=== PATIENT | male | born 1995 | race Caucasian/White ===

== ENCOUNTER 2021-12-29 15:57 | Emergency (ER) | payer OTHER, SELFPAY ==
--- NOTE | ~2021-12-29 | CT_ITS ---
EXAMINATION: CT brain wo con DATE: 12/29/2021 17:02 INDICATION: Fall with head injury TECHNIQUE: Computed tomography (CT) of the head was performed without intravenous contrast. Sagittal and coronal reconstructions were performed. The mA was adjusted according to patient size. Iterative reconstruction technique was employed. The dose-length product was 605.33 mGy-cm. COMPARISON: None FINDINGS: No fracture. No acute intracranial hemorrhage, acute infarction or abnormal extra axial fluid collect ion. Ventricles are normal and symmetric. No mass/mass effect. The orbits, paranasal sinuses and mast oid air cells are normal. IMPRESSION: 1. Normal head CT. No fracture or acute intracranial process. Reviewed, dictated and finalized at location [facility]
[2021-12-29 15:59] VITALS: BP 155/74; PULSE 60; RESP 18; TEMP 36.8; O2SAT 99
--- NOTE | 2021-12-29 16:52 | ED.WOUNDLAC ---
HPI - Wound/Laceration General Chief Complaint: Wound/Laceration Stated Complaint: lac x 2 Time Seen by Provider: 12/29/21 16:01 Source: patient Mode of arrival: EMS Limitations: no limitations History of Present Illness HPI narrative: This is a 26-year-old male who presents to the ED, via EMS, with complaints of lacerations to his left hand and right eyebrow. 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 He then began to feel weak and dizzy and had a syncopal episode, falling forward and sustaining a laceration just above his right eyebrow. Patient feels better currently. He denies any headache, vision changes, dizziness, neck pain, weakness, nausea. Related Data Allergies Allergy/AdvReac Type Severity Reaction Status Date / Time No Known Allergies Allergy Verified 12/29/21 16:33 Review of Systems Review of Systems: CONSTITUTIONAL: Denies fever, chills, or sweats. EYES: Denies visual changes. CARDIOVASCULAR: Denies chest pain. RESPIRATORY: Denies dyspnea. GASTROINTESTINAL: Denies abdominal pain, nausea, vomiting. SKIN: Reports lacerations to left hand and right eyebrow. MUSCULOSKELETAL: Denies back pain, neck pain. NEUROLOGIC: Reports syncope, head injury. Denies headache, numbness, or weakness. All systems reviewed & are unremarkable except as noted in HPI and below PMFSH Past Medical History Medical History (Updated 12/29/21 @ 19:09 by Aleta Ambriz PA-C) No pertinent past medical history Surgical History Surgical History No pertinent past surgical history Social History Social History Substance use type: marijuana Exam Narrative: APPEARANCE: Well appearing, no pain in distress, well-nourished. HEAD: 1.5 cm laceration just superior to R eyebrow with surrounding swelling, bleeding controlled. EYES: PERRL/EOMI, conjunctivae clear. NECK: Supple. Full ROM, no midline spinal tenderness. RESPIRATORY: Airway patent, respirations nonlabored. Clear to auscultation bilaterally. CARDIOVASCULAR: Regular rate and rhythm without murmurs rubs or gallops. 2+ radial pulses bilaterally. MUSCULOSKELETAL: Moves all extremities. Strength/ROM/sensation intact to L hand. NEURO: A&OX3. Cranial nerves II - XII grossly intact. Good gait. Good coordination SKIN: 3cm laceration to webspace between 1st and 2nd fingers on L hand, bleeding controlled. PSYCHIATRIC: Normal affect/mood, normal interaction. Course Vital Signs Vital signs: Vital Signs Temperature 98.2 F 12/29/21 15:59 Pulse Rate 60 12/29/21 15:59 Respiratory Rate 18 12/29/21 15:59 Blood Pressure 155/74 H 12/29/21 15:59 Pulse Oximetry 99 12/29/21 15:59 Temperature 98.9 F 12/29/21 19:51 Pulse Rate 89 12/29/21 19:53 Respiratory Rate 20 12/29/21 19:53 Blood Pressure 135/62 12/29/21 19:51 Pulse Oximetry 100 12/29/21 19:51 Procedures Laceration Laceration 1: Date: 12/29/21 Time: 16:45 Site: face (R eyebrow) Side (If applicable): right Size (cm): 1.5 Description: linear and clean Depth: simple, single layer Local Anesthetic: lidocaine 1% and with epi Amount of anesthesia used (mL): 5 Pre-repair: wound explored and irrigated ====== Skin Level ====== Skin layer closed with: nylon Size (cm): 4-0 Number of sutures: 3 Technique: simple, interrupted ====== Subcutaneous Layer ====== ====== Muscle Layer ====== ====== Tendon Layer ====== Dressing: Verbal consent was obtained prior to the procedure. The wound was cleaned and irrigated with copious amounts of normal saline. Lidocaine 1% with epinephrine was used for anesthesia. Wound was explored is no foreign body seen. The wound was then closed wi
[2021-12-29] MEDS: TETANUS,DIPHTHERIA,AC PERTUSSIS ADULT (0.5 ML) BOOSTRIX IM (19:23)
[2021-12-29 19:51] VITALS: BP 135/62; PULSE 80; RESP 20; TEMP 37.2; O2SAT 100
[2021-12-29 19:53] VITALS: PULSE 89; RESP 20
== END 2021-12-29 20:00 | disposition home or self-care (01) ==
PROVIDERS: Emergency Provider General Practice
DX: S61.412A Laceration without foreign body of left hand, initial encounter (principal); S01.111A Laceration without foreign body of right eyelid and periocular area, initial encounter; Z23 Encounter for immunization; W27.8XXA Contact with other nonpowered hand tool, initial encounter; W18.39XA Other fall on same level, initial encounter
CPT/HCPCS: 12002; 12011; 70450; 90471; 90715; 99284